=== PATIENT | female | born 1960 | race Caucasian/White ===

== ENCOUNTER 2017-02-14 07:33 | Outpatient (CLI) | payer SELFPAY ==
[~2017-02-14 07:33] MED LIST: ATENOLOL100 MG PO; ESTRADIOL1 MG PO; LEVOTHYROXINE50 MCG PO; LIPITOR80 MG PO; PAROXETINE HCL20 MG PO; PERCOCET1 TA4 PO; RESTASIS0.05 %
== END 2017-02-14 23:00 ==
LOC: LAB SRH 07:33
DX: Z01.84 Encounter for antibody response examination (principal)
CPT/HCPCS: 90074; 90229; 90248; 90851